=== PATIENT | female | born 1975 | race Caucasian/White ===

== ENCOUNTER 2023-09-15 08:01 | Emergency (ER) | payer MEDICAID ==
[~2023-09-15] VITALS: Ht 147.3 cm; Wt 49.2 kg
[2023-09-15 08:14] VITALS: BP 137/84; PULSE 107; RESP 18; TEMP 98.5; O2SAT 99
[2023-09-15 08:52] LABS: BASOPHILS # (AUTO) 0.1 K/uL (0.00-0.22); BASOPHILS % (AUTO) 0.6 % (0.0-2.0); HEMATOCRIT 43.8 % (36-48); HEMOGLOBIN 14.8 g/dL (12.0-16.0); LYMPHOCYTES # (AUTO) 0.9 K/uL (2.5-16.5); MEAN CORPUSCULAR HEMOGLOBIN 32 pg (27-31); MEAN CORPUSCULAR HGB CONC 34 g/dL (33-37); MEAN CORPUSCULAR VOLUME 93.5 fL (80-94); MONOCYTES # (AUTO) 0.3 K/uL (0.8-1.0); MONOCYTES % (AUTO) 2.9 % (1.7-9.3); NEUTROPHILS % (AUTO) 88.5 % (42.2-75.2); PLATELET COUNT (AUTO) 374 K/uL (140-450); RED BLOOD CELL COUNT(AUTO) 4.69 MIL/uL (4.20-5.40); RED CELL DISTRIBUTION WIDTH 13.2 % (11.6-13.7); WHITE BLOOD COUNT (AUTO) 11.3 K/uL (4.8-10.8)
[2023-09-15 09:23] LABS: ALBUMIN 2.9 g/dL (3.4-5.0); BILIRUBIN,DIRECT 0.2 mg/dL (0.0-0.3); TOTAL BILIRUBIN 0.7 mg/dL (0.0-1.0); TOTAL PROTEIN, SERUM 7.9 g/dL (6.4-8.2)
[2023-09-15 09:42] LABS: APPEARANCE,URINE CLEAR (CLEAR); BILIRUBIN,URINE 1+ (NEGATIVE); BLOOD, URINE 1+ (NEGATIVE); COLOR,URINE YELLOW (YELLOW); LEUKOCYTE ESTERASE ,URINE NEGATIVE (NEGATIVE); NITRITE, URINE NEGATIVE (NEGATIVE); PROTEIN,URINE 1+ (NEGATIVE); UGLUCOSE 3+ (NEGATIVE); UROBILINOGEN,URINE 0.2 EU/dL (0.2 - 1)
[2023-09-15] MEDS: NACL 0.9% 1,000 ML IV ONE (09:56)
[2023-09-15] MEDS: MORPHINE SULFATE 4 MG/ML SYR IVP ONE (10:04)
[2023-09-15 10:19] LABS: BACTERIA,URINE 1+ /HPF (None Seen); ICTOTEST NEGATIVE (NEGATIVE); RBC,URINE 11-20 (MOD) /HPF (0-5); SQUAMOUS EPITHELIAL CELL,UR 4-10 (MOD) /LPF (0-3 (FEW)); WBC,URINE >25 (MANY) /HPF (0-5); WHITE BLOOD CELL CASTS,URINE 0-3 /LPF (None Seen)
[2023-09-15 10:20] LABS: HYALINE CASTS, URINE 0-10 /LPF (None Seen)
[2023-09-15 11:09] LABS: ANION GAP 20.1 (8-16); CALCIUM 9.5 mg/dL (8.5-10.1); CARBON DIOXIDE 21.9 mmol/L (21-32); CREATININE 0.5 mg/dL (0.6-1.3)
[2023-09-15 11:18] VITALS: O2SAT 98
[2023-09-15] MEDS: POTASSIUM CHLORIDE 10 MEQ TABER PO ONE (12:30)
[2023-09-15] MEDS ORDERED: DOXY-690 PO (12:42)
[2023-09-15] MEDS ORDERED: METR-520 PO (12:43)
[2023-09-15] MEDS ORDERED: ONDA-188 PO (12:46)
[2023-09-15] MEDS ORDERED: CEPH500C16 PO (12:46)
[2023-09-15] MEDS ORDERED: cefTRIAXone 500 MG VIAL ONE (13:29)
[2023-09-15] MEDS ORDERED: LIDOCAINE MPF 1% 5 ML ONE (13:29)
[2023-09-15 13:31] VITALS: BP 95/65; PULSE 98; RESP 17; TEMP 98.3
[2023-09-15] MEDS: cefTRIAXone 500 MG in LIDOCAINE MPF 1% 1 ML IM ONE (13:39)
[2023-09-15 13:49] VITALS: O2SAT 98
== END 2023-09-15 13:55 | disposition home or self-care (01) ==
LOC: MED 08:01
DX: R10.2 Pelvic and perineal pain (principal); E11.9 Type 2 diabetes mellitus without complications; I10 Essential (primary) hypertension; Z79.899 Other long term (current) drug therapy
CPT/HCPCS: 36415; 74176; 76856; 80048; 80076; 81001; 81025; 82948; 83690; 85025; 87086; 87186; 93976; 96361; 96372; 96374; 99285; J0696; J2001; J2270; J7030; Q0092